=== PATIENT | male | born 1980 | race African-American/Black ===

== ENCOUNTER 2025-01-14 22:51 | Emergency (ER) | payer OTHER ==
[~2025-01-14] VITALS: Ht 172.7 cm; Wt 75.0 kg
[2025-01-14 23:04] VITALS: TEMP 98.3
[2025-01-14 23:25] VITALS: BP 145/91; PULSE 68; RESP 19; O2SAT 99
[2025-01-15] MEDS ORDERED: ACET-66 PO (00:09)
[2025-01-15] MEDS: ACETAMINOPHEN 500 MG TABLET PO ONE (00:20)
== END 2025-01-15 00:52 | disposition home or self-care (01) ==
LOC: EMS 23:08
DX: S93.402A Sprain of unspecified ligament of left ankle, initial encounter (principal); X50.1XXA Overexertion from prolonged static or awkward postures, initial encounter; Y93.01 Activity, walking, marching and hiking; Y92.89 Other specified places as the place of occurrence of the external cause; Y99.8 Other external cause status
CPT/HCPCS: 99283

== ENCOUNTER 2025-01-21 00:41 | Emergency (ER) | payer OTHER ==
[~2025-01-21] VITALS: Ht 172.7 cm; Wt 77.3 kg
[~2025-01-21 00:41] MED LIST: ACET-66 PO
[2025-01-21 00:43] VITALS: BP 123/68; PULSE 71; RESP 14; TEMP 98.1; O2SAT 98
[2025-01-21] MEDS: GABAPENTIN 400 MG CAPSULE PO ONE (03:15)
[2025-01-21] MEDS: HYDROCODONE/ACETAMINOPHEN 5-325 MG TABLET PO ONE (03:15)
== END 2025-01-21 05:31 | disposition home or self-care (01) ==
LOC: EMS 00:41
DX: G89.29 Other chronic pain (principal); M25.552 Pain in left hip
CPT/HCPCS: 99283

== ENCOUNTER 2025-01-23 21:16 | Emergency (ER) | payer OTHER ==
[~2025-01-23] VITALS: Ht 172.7 cm; Wt 77.3 kg
[2025-01-23 21:29] VITALS: BP 147/87; PULSE 79; RESP 16; TEMP 97.9; O2SAT 100
[2025-01-24] MEDS: HYDROCODONE/ACETAMINOPHEN 5-325 MG TABLET PO ONE ×2 (04:06→04:07)
[2025-01-24] MEDS: KETOROLAC TROMETHAMINE 30 MG/ML VIAL IM ONE (04:14)
[2025-01-24] MEDS: GABAPENTIN 300 MG CAPSULE PO ONE (04:20)
[2025-01-24] MEDS ORDERED: TRAM50TA5 PO (04:55)
== END 2025-01-24 05:11 | disposition home or self-care (01) ==
LOC: EMS 21:17
DX: G89.29 Other chronic pain (principal); M25.552 Pain in left hip
CPT/HCPCS: 99283; 96372; J1885

== ENCOUNTER 2025-03-08 18:55 | Emergency (ER) | payer OTHER ==
[~2025-03-08] VITALS: Ht 172.7 cm; Wt 77.3 kg
[~2025-03-08 18:55] MED LIST changes: +TRAM50TA5 PO
[2025-03-08 19:00] VITALS: BP 113/74; PULSE 68; RESP 18; TEMP 98.2; O2SAT 99
[2025-03-08] MEDS ORDERED: GABA-1216 PO (19:02)
== END 2025-03-08 21:52 | disposition left against medical advice (07) ==
LOC: EMS 18:55
DX: M25.512 Pain in left shoulder (principal); M79.662 Pain in left lower leg; Z53.21 Procedure and treatment not carried out due to patient leaving prior to being seen by health care provider